=== PATIENT | female | born 1955 ===

== ENCOUNTER 2024-01-28 09:07 | Emergency (ER) | payer SELFPAY ==
[2024-01-28 09:23] LABS: BASOPHILS PERCENT AUTO 0.2 % (0.0-1.0); EOSINOPHILS PERCENT AUTO 3.8 % (1.0-3.0); HEMATOCRIT 33.2 % (37.0-47.0); LYMPHOCYTES PERCENT AUTO 25.8 % (20.5-50.1); MEAN CORPUSCULAR HEMOGLOBIN 29.9 pg (27.0-34.0); MEAN CORPUSCULAR HGB CONC 30.1 g/dL (33.0-35.0); MEAN CORPUSCULAR VOLUME 99.1 fL (80-100); MONOCYTES PERCENT AUTO 4.5 % (2-8); NEUTROPHILS PERCENT AUTO 65.7 % (42.2-75.2); PLATELET COUNT,PLT 340 10^3/uL (150-450); RED BLOOD CELL COUNT 3.35 10^6/uL (4.2-5.4); WHITE BLOOD CELL COUNT,WBC 8.6 10^3/uL (5.0-10.0)
[2024-01-28] MEDS: methylPREDNISolone Sodium Succinate 125 MG/2 ML SDV IVPUSH ONE (09:37)
[2024-01-28] MEDS: Albuterol/Ipratropium 3.0-0.5 MG/3 ML Neb Soln NEB ONE ×2 (09:37→10:04)
[2024-01-28] MEDS: Sodium Chloride 0.9% 10 ML Syringe FLUSH PRN (09:37)
[2024-01-28 09:46] LABS: ALANINE AMINOTRANSFERASE,ALT 36 U/L (14-59); ALBUMIN 3.9 g/dL (3.4-5.0); ALKALINE PHOSPHATASE 143 U/L (46-116); ANION GAP 10.1 mEq/L (7-13); ASPARTATE AMNIOTRANSFERASE,AST 22 U/L (15-37); BILIRUBIN TOTAL 0.5 mg/dL (0.2-1.0); BLOOD UREA NITROGEN,BUN 29 mg/dL (7-18); BUN/CREATININE RATIO 23.6 (No establ ref range); CALCIUM 9.1 mg/dL (8.5-10.1); CARBON DIOXIDE,CO2 33 mmol/L (21-32); CHLORIDE,CL 98 mmol/L (98-107); CREATININE 1.23 mg/dL (0.55-1.02); EST CRCL DRUG DOSING (CG) 31.01 mL/min; ESTIMATED GFR 48 mL/min (>=60); GLUCOSE RANDOM 218 mg/dL (70-99); POTASSIUM,K 4.1 mmol/L (3.5-5.1); SODIUM,NA 137 mmol/L (136-145)
[2024-01-28 09:47] LABS: B-TYPE NATRIURETIC PEPTIDE,BNP 41 pg/ml (0-100)
[2024-01-28 09:48] LABS: LACTIC ACID 2.2 mmol/L (0.4-2.0)
[2024-01-28] MEDS: Albuterol/Ipratropium 3.0-0.5 MG/3 ML Neb Soln ONE (10:04)
[2024-01-28 10:07] LABS: CORONAVIRUS COVID-19 NAA NEGATIVE (NEGATIVE); INFLUENZA A NAA NEGATIVE (NEGATIVE); INFLUENZA B NAA NEGATIVE (NEGATIVE); RESPIRATORY SYNCYTIAL VIR NAA NEGATIVE (NEGATIVE)
== END 2024-01-28 10:31 ==
LOC: EDBD → DL.ED 09:07
DX: J96.21 Acute and chronic respiratory failure with hypoxia (principal); J44.1 Chronic obstructive pulmonary disease with (acute) exacerbation; J98.4 Other disorders of lung; I11.0 Hypertensive heart disease with heart failure; I50.9 Heart failure, unspecified; I25.10 Atherosclerotic heart disease of native coronary artery without angina pectoris; E11.9 Type 2 diabetes mellitus without complications; E78.5 Hyperlipidemia, unspecified; Z88.8 Allergy status to other drugs, medicaments and biological substances; Z88.6 Allergy status to analgesic agent; Z79.51 Long term (current) use of inhaled steroids; Z79.899 Other long term (current) drug therapy; Z79.82 Long term (current) use of aspirin
CPT/HCPCS: 0241U; 36415; 71045; 80053; 83605; 83880; 84145; 84484; 85025; 87040; 93005; 93010; 96374; 99285; J2930; J3490; J7620-GY